=== PATIENT | female | born 1985 ===

== ENCOUNTER 2017-06-14 12:06 | Emergency (ER) | payer MEDICAID, OTHER ==
[2017-06-14 12:06] VITALS: BMI 29.9
[2017-06-14 12:19] VITALS: RESP 20
[2017-06-14] MEDS ORDERED: Sodium Chloride 0.9% 1,000 ML IV ONE (12:28)
--- NOTE | 2017-06-14 12:38 | C.PDOC ---
History Of Present Illness 32 y/o female with PMHx of Asthma presents to ED with complaints of cough and wheezing for 1 week with associated vomiting. Patient states she has used inhaler with no improvement. Patient also reports pain to chest when coughing. Patient denies fever, chills, sob, abdominal pain, diarrhea or any other complaints at this time. Time Seen by Provider: 06/14/17 12:18 Chief Complaint (Nursing): Chest Pain History Per: Patient History/Exam Limitations: no limitations Onset/Duration Of Symptoms: Days Current Symptoms Are (Timing): Still Present Severity: None Quality: Burning Exacerbating Factors: Movement, Other (cough) Past Medical History Reviewed: Historical Data, Nursing Documentation, Vital Signs Vital Signs: Last Vital Signs Temp 98.4 F 06/14/17 13:53 Pulse 88 06/14/17 13:53 Resp 20 06/14/17 13:53 BP 127/70 06/14/17 13:53 Pulse Ox 100 06/14/17 13:53 - Medical History PMH: Anemia, Asthma Surgical History: No Surg Hx Family History: States: No Known Family Hx - Social History Hx Alcohol Use: No Hx Substance Use: No - Immunization History Hx Tetanus Toxoid Vaccination: No Hx Influenza Vaccination: Yes Hx Pneumococcal Vaccination: No Review Of Systems Constitutional: Negative for: Fever, Chills Respiratory: Positive for: Cough, Wheezing. Negative for: Shortness of Breath Gastrointestinal: Positive for: Vomiting. Negative for: Diarrhea Musculoskeletal: Negative for: Back Pain Skin: Negative for: Rash Physical Exam - Physical Exam Appears: Non-toxic, No Acute Distress Skin: Normal Color, Warm, Dry, No Rash Head: Atraumatic, Normacephalic Eye(s): bilateral: Normal Inspection Oral Mucosa: Moist Lips: Normal Appearing Throat: Normal, No Erythema, No Exudate Neck: Supple Cardiovascular: Rhythm Regular Respiratory: Normal Breath Sounds, No Rales, No Rhonchi, No Wheezing Gastrointestinal/Abdominal: Soft, No Tenderness, No Guarding, No Rebound Extremity: Normal ROM, Capillary Refill (<2 seconds) Neurological/Psych: Oriented x3, Normal Speech Gait: Steady ED Course And Treatment - Laboratory Results Result Diagrams: 06/14/17 12:52 06/14/17 12:52 Lab Interpretation: Normal Urine POC: Negative ECG: Interpreted By Me, Viewed By Me ECG Rhythm: Sinus Rhythm ECG Interpretation: Normal Rate From EC (bpm) O2 Sat by Pulse Oximetry: 97 (ra) Pulse Ox Interpretation: Normal - Radiology CXR: Interpreted by Me, Viewed By Me, Read By Radiologist (FINDINGS:) CXR Interpretation: Yes: No Acute Disease Progress Note: Treated with IVF NSS and duonebs. On re-evaluation lungs clear in no distress Reassessment Condition: Improved Medical Decision Making Medical Decision Making: Plan: Blood work, Neb treatment x2, Toradol, Zofran Disposition Counseled Patient/Family Regarding: Studies Performed, Diagnosis, Need For Followup - Disposition Referrals: [facility] [Outside] [facility] [Outside] Disposition: HOME/ ROUTINE Disposition Time: 14:00 Condition: STABLE Additional Instructions: Follow up with clinic or PMD for further evaluation Instructions: Upper Respiratory Infection (ED), Viral Syndrome (ED) Forms: [email or web address] (Kyrgyz) - POA Present On Arrival: None - Clinical Impression Clinical Impression: Upper respiratory infection - PA / LACE FINISHER / Resident Statement MD/DO has reviewed & agrees with the documentation as recorded. - Scribe Statement The provider has reviewed the documentation as recorded by the Scribe Marie Juarez All medical record entries made by the Breann were at my direction and personally dictated by me. I have reviewed the chart and agree that the record accurately reflects my personal performance of the history, physical exam, medical decision making, and the department course for this patient. I have also personally directed, reviewed, and agree with the discharge instructions and disposition.
[2017-06-14] MEDS ORDERED: Sodium Chloride 0.9% 1,000 ML ONE (12:48)
[2017-06-14 12:58] LABS: BASO % 0.4 % (0.0-2.0); EOS # 0.1 K/uL (0.0-0.7); EOS % 1.5 % (0.0-4.0); HEMATOCRIT 37.2 % (34.0-47.0); LYMPH # 2.2 K/uL (1.0-4.3); LYMPH % 33.9 % (20.0-40.0); MEAN CELL VOLUME 87.7 fL (81.0-99.0); MEAN CORPUSCULAR HEMOGLOBIN 30.1 pg (27.0-31.0); MEAN CORPUSCULAR HGB CONC 34.4 g/dL (33.0-37.0); MEAN PLATELET VOLUME 8.2 fL (7.2-11.7); MONO # 0.4 K/uL (0.0-0.8); MONO % 6.3 % (0.0-10.0); RED CELL DISTRIBUTION WIDTH 12.9 % (11.5-14.5); WHITE BLOOD COUNT 6.5 K/uL (4.8-10.8)
[2017-06-14 13:06] LABS: RBC URINE 1 /hpf (0-3); URINE BILIRUBIN NEGATIVE (NEGATIVE); URINE BLOOD NEGATIVE (NEGATIVE); URINE COLOR Yellow (YELLOW); URINE GLUCOSE (UA) NORMAL (Normal); URINE KETONE NEGATIVE (NEGATIVE); URINE LEUKOCYTE ESTERASE NEG Leu/uL (Negative); URINE PROTEIN NEGATIVE (NEGATIVE); URINE UROBILINOGEN NORMAL mg/dL (0.2-1.0); WBC URINE < 1 /hpf (0-5)
[2017-06-14 13:10] LABS: ALKALINE PHOSPHATASE 48 U/L (38-126); ALT/SGPT 59 U/L (9-52); AST/SGOT 29 U/L (14-36); BILIRUBIN,TOTAL 0.5 mg/dL (0.2-1.3); BLOOD UREA NITROGEN 11 mg/dL (7-17); CALCIUM 8.7 mg/dl (8.6-10.4); CARBON DIOXIDE 24 mmol/L (22-30); CHLORIDE 105 mmol/L (98-107); GFR AFRICAN-AMERICAN > 60; GLUCOSE,RANDOM 98 mg/dL (65-105); POTASSIUM 4.1 mmol/L (3.6-5.2); SODIUM 135 mmol/L (132-148); TOTAL PROTEIN 8.7 g/dL (6.3-8.3)
[2017-06-14] MEDS ORDERED: Albuterol-Ipratrop 3 mg / 0.5 (3 ml) UD ONE (13:13)
[2017-06-14] MEDS: Albuterol-Ipratrop 3 mg / 0.5 (3 ml) UD IH SCH (13:18)
--- NOTE | 2017-06-14 13:34 | RAD ---
HISTORY: COMPARISON: 08/02/2016. TECHNIQUE: Chest PA and lateral FINDINGS: LINES AND TUBES: None. LUNG AND PLEURA: The lungs are well inflated and clear. HEART AND MEDIASTINUM: The heart is not enlarged. The hilar and mediastinal contours are within normal limits. SKELETAL STRUCTURES: The bony structures are within normal limits for the patient's age. VISUALIZED UPPER ABDOMEN: Normal. OTHER FINDINGS: None. IMPRESSION: No active pulmonary disease.
[2017-06-14 13:53] VITALS: BP 127/70; PULSE 88; TEMP 98.4
[2017-06-14 17:40] VITALS: O2SAT 97
--- NOTE | 2017-06-15 12:21 | CARD ---
APPROVED REPORT EKG Measurement Heart [id number] <Conclusion> Normal sinus rhythm Normal ECG
== END 2017-06-14 14:01 | disposition home or self-care (01) ==
LOC: C.ER 12:06
DX: J06.9 Acute upper respiratory infection, unspecified (principal); F17.210 Nicotine dependence, cigarettes, uncomplicated
CPT/HCPCS: 71020; 80053; 81001; 84703; 85025; 87804; 93005; 96361; 96374; 99284; J2405; J7040

== ENCOUNTER 2017-06-29 14:41 | Emergency (ER) | payer OTHER ==
[2017-06-29 14:41] VITALS: BMI 29.9
[2017-06-29 14:50] VITALS: RESP 20
[2017-06-29] MEDS ORDERED: Oxycodone/Acetaminophen 5/325 mg Tab PO STA (15:41)
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
[2017-06-29] MEDS ORDERED: Oxycodone/Acetaminophen 5/325 mg Tab ONE (15:51)
[2017-06-29 16:30] VITALS: BP 115/76; PULSE 66; TEMP 97.5
--- NOTE | 2017-06-29 16:32 | RAD ---
PROCEDURE: Left Knee Radiographs. HISTORY: Pain. COMPARISON: None. FINDINGS: BONES: Normal. No fracture. JOINTS: Normal. No osteoarthritis. JOINT EFFUSION: None. OTHER FINDINGS: None. IMPRESSION: Normal radiographs of the left knee.
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
[2017-06-29 16:34] VITALS: O2SAT 99
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
[2017-06-29] MEDS ORDERED: Lidocaine 5% Patch TD STA (16:35)
[2017-06-29] MEDS ORDERED: Lidocaine 5% Patch TD ONE (16:42)
== END 2017-06-29 16:48 | disposition home or self-care (01) ==
LOC: C.ER 14:41
DX: S80.212A Abrasion, left knee, initial encounter (principal); T14.8XXA Other injury of unspecified body region, initial encounter; W10.9XXA Fall (on) (from) unspecified stairs and steps, initial encounter
CPT/HCPCS: 73502; 73562; 73610; 73630; 96372; 99284; J1885

== ENCOUNTER 2017-11-15 18:49 | Emergency (ER) | payer OTHER ==
[2017-11-15 18:49] VITALS: BMI 29.9
[2017-11-15 19:01] VITALS: BP 117/72; PULSE 93; RESP 20; TEMP 98.6; O2SAT 99
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
== END 2017-11-15 21:11 | disposition home or self-care (01) ==
LOC: C.ER 18:49
DX: S46.811A Strain of other muscles, fascia and tendons at shoulder and upper arm level, right arm, initial encounter (principal); S33.5XXA Sprain of ligaments of lumbar spine, initial encounter; V49.49XA Driver injured in collision with other motor vehicles in traffic accident, initial encounter; Y92.410 Unspecified street and highway as the place of occurrence of the external cause
CPT/HCPCS: 96372; 99284; J1885